=== PATIENT | female | born 1995 | race Asian ===

== ENCOUNTER 2018-11-23 16:53 | Emergency (ER) | payer OTHER ==
--- NOTE | 2018-11-23 18:06 | ER Document Report ---
ED Medical Screen (RME) - General Chief Complaint: Rectal Bleeding Stated Complaint: RECTAL BLEEDING Time Seen by Provider: 11/23/18 18:01 - HPI Notes: 11/23/18 18:05 Patient is a 22-year-old female with a history of psoriasis who presents complaining of noticing red blood when she wiped after having a bowel movement today. She has not had any associated pain or discomfort. No known hemorrhoids. She has not had any insertion into this area by any other object. Denies drug allergies. She has no other concerns or complaints. She is eating and drinking without difficulty. She is urinating normally. No other vaginal discharge, odor, or bleeding. Denies DAWSON, fever, neck pain, URI, CP, SOB, Abd pain, n/v/d, dysuria, back pain, or rash. I have treated and performed a rapid initial assessment of this patient. A comprehensive ED assessment and evaluation of the patient, analysis of test results and completion of medical decision making process will be conducted by additional ED providers. PHYSICAL EXAMINATION: GENERAL: Well-appearing, well-nourished and in no acute distress. A&Ox4. Answers questions appropriately. LUNGS: Breath sounds clear to auscultation bilaterally and equal. No wheezes rales or rhonchi. HEART: Regular rate and rhythm without murmurs, rubs, gallops. ABDOMEN: Soft, nondistended abdomen. No guarding, no rebound. Normal bowel sounds present. No CVA tenderness bilaterally. Grossly nontender (cannot elicit thorough abd exam w/o bed, however). Pt needs to be placed in gown and have rectal exam performed. - Related Data Allergies/Adverse Reactions: No Known Allergies Allergy (Unverified 11/23/18 16:56) Physical Exam - Vital signs Vitals: Temp Pulse Resp BP Pulse Ox 98.9 F 94 14 139/84 H 98 11/23/18 17:23 11/23/18 17:23 11/23/18 17:23 11/23/18 17:23 11/23/18 17:23 Course - Vital Signs Vital signs: Temp Pulse Resp BP Pulse Ox 98.9 F 94 14 139/84 H 98 11/23/18 17:23 11/23/18 17:23 11/23/18 17:23 11/23/18 17:23 11/23/18 17:23
--- NOTE | 2018-11-23 19:15 | ER Document Report ---
ED General - General Chief Complaint: Rectal Bleeding Stated Complaint: RECTAL BLEEDING Time Seen by Provider: 11/23/18 18:01 Primary Care Provider: TA NGUYEN MD [ACTIVE STAFF] - Follow up as needed Notes: Patient is a 22-year-old female who presents emergency permit with a chief complaint of rectal bleeding. She states that she noticed some bleeding when she had wiped after using the restroom. She did not look in the toilet to see if she had a lot of blood in the toilet. She only saw a small streak of blood on the toilet paper. She is a past history of a states that she feels like she has psoriasis at her anal area. She currently uses tacrolimus for her psoriasis and she is inquiring about whether or not she can use it in her anal area. She denies any abdominal pain, nausea, vomiting, diarrhea, or any other symptoms at this time. She does have depression, but does not take any medications. She sees a therapist. - Related Data Allergies/Adverse Reactions: No Known Allergies Allergy (Unverified 11/23/18 16:56) Past Medical History - Social History Smoking Status: Unknown if Ever Smoked Chew tobacco use (# tins/day): No Frequency of alcohol use: None Drug Abuse: None Family History: Reviewed & Not Pertinent Patient has suicidal ideation: No Patient has homicidal ideation: No Pulmonary Medical History: Reports: Hx Asthma Renal/ Medical History: Denies: Hx Peritoneal Dialysis Review of Systems - Review of Systems Notes: REVIEW OF SYSTEMS: CONSTITUTIONAL : Denies recent illness. Denies recent unintentional weight loss. Denies fever, chills, or sweats. EENT: Denies eye, ear, throat, or mouth pain, discharge, or symptoms. Denies nasal or sinus congestion. CARDIOVASCULAR: Denies chest pain. RESPIRATORY: Denies shortness of breath, cough, congestion, difficulty breathing, or wheezing. GASTROINTESTINAL: See HPI GENITOURINARY: Denies difficulty urinating, burning, blood in urine, urgency or frequency. MUSCULOSKELETAL: Denies neck and back pain. Denies joint pain or swelling. SKIN: See HPI HEMATOLOGIC : Denies easy bruising or bleeding. LYMPHATIC: Denies swollen, painful, enlarged glands. NEUROLOGICAL: Denies no numbness or tingling denies weakness. Denies headache. Denies altered mental status. Denies alteration in speech. PSYCHIATRIC: Denies stress, anxiety, alteration in sleep patterns, or depression. All other systems reviewed and negative. Physical Exam - Vital signs Vitals: Temp Pulse Resp BP Pulse Ox 98.9 F 94 14 139/84 H 98 11/23/18 17:23 11/23/18 17:23 11/23/18 17:23 11/23/18 17:23 11/23/18 17:23 - Notes Notes: PHYSICAL EXAMINATION: GENERAL: Appears well, healthy, well-nourished, no acute distress. HEAD: Normocephalic, atraumatic. EYES: PERRL, conjunctiva normal, all extraocular movements intact, sclera nonicteric ENT: Moist mucous membranes. NECK: Supple, no noticeable swelling, redness, rash. Normal range of motion. LUNGS: Equal breath sounds bilaterally and clear to auscultation. No wheezes rales or rhonchi. CARDIOVASCULAR: S1-S2, regular rate, regular rhythm. Radial pulses 2+, normal. ABDOMEN: Normoactive bowel sounds. Soft, nontender, no guarding, no rebound tenderness, and no masses palpated. EXTREMITIES: Normal strength and range of motion, no pitting or edema. No cyanosis. NEUROLOGICAL: Moves all extremities upon command. Strength 5/5 in all extremities. PSYCH: Normal mood, normal affect. SKIN: Warm, dry. Psoriasis noted to scalp anal area. Normal skin turgor. Rectal: No dayron blood noted. Psoriasis noted to anal area. Course - Re-evaluation Re-evalutation: 11/23/18 19:16 VENANCIO Jones was at bedside for dot compliance coordinator of rectal exam. Patient's rectal exam did not show any dayron blood. I suspect the bleeding she noticed on the toilet paper was most likely due to her psoriasis anal area. I have advised her that it is safe to use tacrolimus on her anal area. I told her that if she sees dayron blood in the toilet, she needs to follow-up with her primary care provider or GI. She is in agreement with this plan. I do not suspect the patient has a GI bleed at this time. I did not feel any hemorrhoids. Verbal discharge instructions were given to the patient. They verbalized understanding. They are stable for discharge. - Vital Signs Vital signs: Temp Pulse Resp BP Pulse Ox 98.1 F 84 20 118/73 98 11/23/18 19:34 11/23/18 19:34 11/23/18 19:34 11/23/18 19:34 11/23/18 19:34 Discharge - Discharge Clinical Impression: Anal bleeding, Psoriasis Condition: Stable Disposition: HOME, SELF-CARE Additional Instructions: You were seen today in the emergency department for bleeding from your anal area. Your psoriasis is in the area. It is safe to use your tacrolimus in that area. If you have a large amount of blood in the toilet when you use the restroom, you can follow-up here in the emergency department or go to gastroenterology to be examined. Please follow-up with your primary care provider. Please make sure you are eating enough and drinking of fluids to make sure you do not get constipated. If you have any symptoms that are worrisome to you, developed abdominal pain, nausea, vomiting, or diarrhea, please return to the emergency department. Referrals: TA NGUYEN MD [ACTIVE STAFF] - Follow up as needed
[2018-11-23 19:35] VITALS: BP 118/73
== END 2018-11-23 19:38 | disposition home or self-care (01) ==
LOC: ER 16:53
DX: K62.5 Hemorrhage of anus and rectum (principal); L40.9 Psoriasis, unspecified; Z79.899 Other long term (current) drug therapy; F32.9 Major depressive disorder, single episode, unspecified; J45.909 Unspecified asthma, uncomplicated
CPT/HCPCS: 99283